=== PATIENT | male | born 1975 | race Caucasian/White ===

== ENCOUNTER → 2025-05-23 07:06 | Outpatient (REF) | payer BC, SELFPAY | LOC: RAD 07:06 | PROVIDERS: ATTENDING PHYSICIAN Internal Medicine Endocrinology, Diabetes & Metabolism; FAMILY PHYSICIAN Family Medicine | DX: E89.0 Postprocedural hypothyroidism (principal) | CPT/HCPCS: 76700 ==

== ENCOUNTER 2025-06-08 13:39 | Emergency (ER) | payer BC, SELFPAY ==
[2025-06-08 13:53] VITALS: BP 129/80
--- NOTE | 2025-06-08 15:54 | ED.GENMED ---
History of Present Illness
General
Chief Complaint: Musculo-Skeletal Complaint
Source: patient
Exam Limitations: none
Time Seen by Provider: 06/08/25 15:04
Nursing documentation reviewed up to this point in time: agreed with
History of Present Illness
History of Present Illness:
50-year-old male presenting to the emergency department after feeling a pop to his anterior elbow while lifting a couch earlier today. Increased discomfort with rotation of the forearm and elbow flexion. Otherwise denies any additional injuries.
No numbness or weakness.
Past History
Past History
ED Past Medical History: None
ED Past Surgical History: None
Social History
Tobacco: Non-smoker
Personal:
Review of Systems
Review of Systems
Allergies reviewed?: Yes
All Other Systems: ROS reviewed and negative except as documented in HPI and ROS
Phy Exam
Physical Exam
Physical Exam:
GENERAL: Alert , in no apparent distress
EYE: pupils equal and reactive
NECK: Supple, no significant adenopathy.
ENT: o/p clr, mmm.
CARDIAC: Regular rate and rhythm .
LUNGS: Clear breath sounds bilaterally, no acute respiratory distress, no wheezes/rales/rhonchi
ABDOMEN: Soft, without focal tenderness, no r/g, no cvat
NEUROLOGICAL: Alert and oriented, no focal neuro deficits
SKIN: Warm and dry, skin intact.
MUSCULOSKELETAL: Mild pain to palpation to the anterior right elbow increased discomfort with pronation no edema, well perfused.
PSYCH: Normal and appropriate interaction.
Course
Orders/Labs/Results
Orders:
Orders
06/08/25 13:41
CR Elbow - Right Min 3 Views Urgent
Comment:
Reason For Exam: pain to R elbow/forearm while lifting heavy object
Vital Signs
Initial and Last Documented VS:
Initial Vital Signs
Temp Pulse Resp BP Pulse Ox
98.6 F 72 18 129/80 97
06/08/25 13:53 06/08/25 13:53 06/08/25 13:53 06/08/25 13:53 06/08/25 13:53
Last Documented Vital Signs
Temp Pulse Resp BP Pulse Ox
98.6 F 72 18 129/80 97
06/08/25 13:53 06/08/25 13:53 06/08/25 13:53 06/08/25 13:53 06/08/25 13:53
MDM/Problems Addressed
MDM/Problems Addressed:
50-year-old male presenting to the emergency department after feeling a pop to his anterior elbow while lifting a couch earlier today. X-ray without emergent findings here. Neurovascularly intact on examination. Patient with likely sprain to the
elbow was advised to rest ice compress and elevate and follow-up closely with orthopedics. Return precautions given.
*Pulse Oximetry
SaO2: 97
Oxygen Mode of Delivery: Room air
Patient hypoxic: no (97)
*Critical Care Note
Total Time (30-74mins, 75-104mins- exclusive of procedures): Not Applicable
ED Attending Note
-
Portions of this chart may have been created with voice recognition software.� Occasional wrong word or��sound alike� substitutions may have occurred due to the inherent limitations of voice recognition software.
Discharge Plan
Departure
Patient Disposition: Home (Routine Discharge)
Date of Disposition: 06/08/25
Time of Disposition: 15:56
Patient with high blood pressure during this ER visit?: No
Condition: Good
Covid-19: Not Applicable
Discharge Problem:
Elbow sprain
Instructions: Sprain (DC)
Prescriptions:
No Action
prednisone 10 MG tablet
10 mg PO .TAPER Qty: 30 0RF
Rx Instructions:
Take 40mg daily x3days, 30mg daily x3days, 20mg daily x3days, 10mg daily x3days.
Referrals:
Marely Jensen CRNP [Family Provider]
Kali Franklin MD [Active, Orthopedics]
Activity Restrictions/Additional Instructions:
You came to the emergency department today with concerns of elbow discomfort. Here you had a normal x-ray. You likely have a sprain. Please follow closely with orthopedics. Return for any worsening, new or concerning symptoms.
Interventions
Interventions:
*Risk Screen - Suicide Last Done: 06/08/25 13:53
*Neglect/Abuse Screening Last Done: 06/08/25 13:53
Discharge Date and Time
Print Language: CANADI[place]
== END 2025-06-08 16:12 | disposition home or self-care (01) ==
LOC: EMR 13:39
PROVIDERS: EMERGENCY PHYSICIAN Emergency Medicine; FAMILY PHYSICIAN Family Medicine
DX: S53.401A Unspecified sprain of right elbow, initial encounter (principal); X50.0XXA Overexertion from strenuous movement or load, initial encounter
CPT/HCPCS: 99283; 73080